=== PATIENT | female | born 1990 | race Caucasian/White ===

== ENCOUNTER 2016-10-11 09:46 | Emergency (ER) | payer OTHER ==
--- NOTE | 2016-10-11 12:37 | UC ---
Complaint Female HPI - HPI Summary HPI Summary: complaint of vaginal bleeding - had protected intercourse with new partner and condom broke started vaginal bleeding on 10/08/16 after taking Plan B on 10/06/16 heavy menstrual bleeding on 10/09- 10/10 feels fatigued cramping in LLQ yesterday that has resolved nauseated- vomited 2x yesterday denies diarrhea denies dysuria denies vaginal discharge denies any URI symptoms refuses any testing at this [facility] d/t insurance issues - History Of Current Complaint Chief Complaint: UCGU Stated Complaint: FEVER ABD PAIN PERSONAL Time Seen by Provider: 10/11/16 12:16 Hx Obtained From: Patient Hx Last Menstrual Period: 10/01/16 - Allergies/Home Medications Allergies/Adverse Reactions: Allergies Allergy/AdvReac Type Severity Reaction Status Date / Time No Known Allergies Allergy Verified 10/11/16 10:52 Home Medications: Home Medications NK [No Home Medications Reported] 10/11/16 [History Confirmed 10/11/16] PMH/Surg Hx/FS Hx/Imm Hx Previously Healthy: Yes - Surgical History Surgical History: None - Family History Known Family History: Positive: Hypertension Negative: Cardiac Disease, Diabetes - Social History Occupation: Employed Full-time Lives: Alone Alcohol Use: Rare Substance Use Type: None Smoking Status (MU): Never Smoked Tobacco Have You Smoked in the Last Year: No Review of Systems Constitutional: Chills, Fatigue Skin: Negative Eyes: Negative ENT: Negative Respiratory: Negative Cardiovascular: Negative Gastrointestinal: Abdominal Pain, Vomiting Genitourinary: Other - vaginal bleeding Motor: Negative Neurovascular: Negative Musculoskeletal: Negative Neurological: Negative Psychological: Negative All Other Systems Reviewed And Are Negative: Yes Physical Exam Triage Information Reviewed: Yes Appearance: No Pain Distress, Well-Nourished Vital Signs: Initial Vital Signs Temp 99 F 10/11/16 10:44 Pulse 85 10/11/16 10:44 Resp 14 10/11/16 10:44 BP 111/66 10/11/16 10:44 Pulse Ox 100 10/11/16 10:44 Vital Signs Reviewed: Yes Eyes: Positive: Conjunctiva Clear ENT: Positive: Normal ENT inspection Neck: Positive: No Lymphadenopathy Respiratory: Positive: Lungs clear, Normal breath sounds, No respiratory distress Cardiovascular: Positive: RRR, No Murmur, Pulses Normal Abdomen Description: Positive: Nontender, No Organomegaly, Soft. Negative: CVA Tenderness (R), CVA Tenderness (L), Distended, Guarding Bowel Sounds: Positive: Present Musculoskeletal: Positive: No Edema Neurological Exam: Normal Psychological Exam: Normal Skin Exam: Normal - External genitalia without erythema, exudate or discharge. Vaginal vault is without discharge. Cervix is of normal color without lesion. The os is closed. There is no bleeding noted. Uterus is noted to be of normal size and nontender. No cervical motion tenderness is seen. No masses are palpated. The adnexa are without masses or tenderness Complaint Female Dx - Course Course Of Treatment: exam completed. normal examination - abdomen nontender, No cervical motion tenderness,cervial discharge or bleeding noted. pt refuses STD testing and UA at this time. discussed adverse effects of taking Plan B. no emergent symptoms at this time. discussed when to seek emergent care if needed. - Differential Dx/Diagnosis Differential Diagnosis/HQI/PQRI: Cervicitis, Sexually Transmitted Disease, Other - adverse medication effects Provider Diagnoses: adverse medication reaction- Plan B Discharge - Discharge Plan Condition: Stable Disposition: HOME Patient Education Materials: Menstruation (ED) Referrals: No Primary Care Phys,NOPCP [Primary Care Provider] - [facility] [place] [facility] [Outside] Additional Instructions: Increase fluids and rest Take [id number] day with food to reduce your symptoms [facility] that your have refused at urgent care. Please review your discharge instructions. If your symptoms do not improve please call your primary care provider or return to urgent care.
== END 2016-10-11 13:20 | disposition home or self-care (01) ==
LOC: UCEAST 09:46
DX: N93.8 Other specified abnormal uterine and vaginal bleeding (principal); T38.4X5A Adverse effect of oral contraceptives, initial encounter
CPT/HCPCS: 99212; G0463

== ENCOUNTER 2017-06-27 21:30 | Emergency (ER) | payer OTHER ==
[2017-06-27] MEDS ORDERED: Naproxen TAB* 250 MG PO ONE (22:16)
--- NOTE | 2017-06-27 23:02 | ED ---
Cabrera Nixon Stephanie, scribed for Colin Marinelli MD on 06/27/17 at 2224 . Lower Extremity - HPI Summary HPI Summary: Pt is a 26 y/o F presenting to the ED with c/o right knee pain that began post ski accident at 1600 today. Pt reports attempting to walk after the accident and feeling unstable in her R knee. No prior injury. Foot, ankle feel normal. Able to walk fairly normally with assistance of jason wrap. - History of Current Complaint Chief Complaint: EDExtremityLower Stated Complaint: RT KNEE INJURY Time Seen by Provider: 06/27/17 22:00 Hx Obtained From: Patient, Family/Material Mixer - Boyfriend Hx Last Menstrual Period: 10/01/16 Mechanism Of Injury: Fall From A Standing Position Onset of Pain: Post Accident Onset/Duration: Still Present Pain Intensity: 0 Pain Scale Used: 0-10 Numeric Location: Is Discrete @ - R knee Associated Signs And Symptoms: Negative: Swelling Aggravating Factor(s): Ambulation Alleviating Factor(s): Rest - Allergies/Home Medications Allergies/Adverse Reactions: Allergies Allergy/AdvReac Type Severity Reaction Status Date / Time No Known Allergies Allergy Verified 10/11/16 10:52 PMH/Surg Hx/FS Hx/Imm Hx Opthamlomology History: Denies: Hx Legally Blind EENT History: Denies: Hx Deafness Infectious Disease History: No Infectious Disease History: Denies: History Other Infectious Disease, Traveled Outside the [place] in Last 30 Days - Family History Known Family History: Positive: Hypertension Negative: Cardiac Disease, Diabetes - Social History Alcohol Use: Rare Substance Use Type: Reports: None Smoking Status (MU): Never Smoked Tobacco Have You Smoked in the Last Year: No Review of Systems Negative: Fever Positive: Other - feeling unstable while ambulating All Other Systems Reviewed And Are Negative: Yes Physical Exam - Summary Physical Exam Summary: Appearance: Well appearing, no pain distress Skin: warm, dry, reflects adequate perfusion Head/face: normal Eyes: EOMI, JANET ENT: normal Neck: supple, non-tender Respiratory: CTA, breath sounds present Cardiovascular: RRR, pulses symmetrical Abdomen: non-tender, soft Bowel: present Musculoskeletal: Pt is able to walk she gets anterior/posterior movement and wobble. On exam, she has a lack of definitive endpoint with Lockman and anterior drawer test. There is slight medial effusion, no laxity of MCL or LCL, no crepitance. Negative Thomas test. Neuro: normal, sensory motor intact, A&Ox3 Triage Information Reviewed: Yes Vital Signs On Initial Exam: Initial Vitals Temp Pulse Resp BP Pulse Ox 98.6 F 68 18 108/67 99 06/27/17 21:37 06/27/17 21:37 06/27/17 21:37 06/27/17 21:37 06/27/17 21:37 Vital Signs Reviewed: Yes Diagnostics - Vital Signs Vital Signs Temp Pulse Resp BP Pulse Ox 06/27/17 21:37 98.6 F 68 18 108/67 99 - Laboratory Lab Statement: Any lab studies that have been ordered have been reviewed, and results considered in the medical decision making process. - Radiology XRay R knee Xray Interpretation: No Acute Changes - No fracture. Slight effusion. Radiology Interpretation Completed By: ED Physician Lower Extremity Course/Dx - Course Course Of Treatment: Min effusion on exam. Lack of def endpoint on Lockman and Ant Drawer. MCL/LCL feel intact. JASON here. Walks well. Suspect incomplete injury , likely of ACL. Xrays nl. Crutches. Refer to ortho. - Diagnoses Provider Diagnoses: ACL laxity, Right knee sprain Discharge - Discharge Plan Condition: Good Disposition: HOME Patient Education Materials: ACL Injury (ED) Referrals: No Primary Care Phys,NOPCP [Medical Doctor] - Jennifer Esquivel MD [Medical Doctor] - Additional Instructions: Range knee every hour. Ice. Jason for support. Hinged knee brace. Call ortho for appt on Friday. May return to work, but limit activity. The documentation as recorded by the Cabrera luis Stephanie accurately reflects the service I personally performed and the decisions made by , Colin Marinelli MD.
[2017-06-27 23:13] VITALS: BP 113/76
--- NOTE | 2017-06-28 09:15 | RAD ---
Indication: Right knee pain. 4 views of the right knee demonstrates no fracture. No other bone or joint abnormality is identified. IMPRESSION: No definite fracture of the right knee is noted. No joint effusion is noted.
== END 2017-06-27 23:12 | disposition home or self-care (01) ==
LOC: ED 21:30
DX: S83.91XA Sprain of unspecified site of right knee, initial encounter (principal); Y93.23 Activity, snow (alpine) (downhill) skiing, snowboarding, sledding, tobogganing and snow tubing; Y92.9 Unspecified place or not applicable; Y99.9 Unspecified external cause status
CPT/HCPCS: 99282; A9270-GY

== ENCOUNTER 2017-09-08 06:23 | Day surgery (SDC) | payer OTHER ==
--- NOTE | 2017-09-02 22:19 | HP ---
PREOPERATIVE HISTORY AND PHYSICAL: DATE OF ADMISSION/SURGERY: 09/08/17 [facility] DATE OF OFFICE VISIT: 09/02/17 ATTENDING SURGEON: Dr. Harini Day.* (DICTATED BY MARIANA DANIELS) PROCEDURE: Right knee arthroscopy, anterior cruciate ligament reconstruction using autograft. CHIEF COMPLAINT: Right knee pain and instability. HISTORY OF PRESENT ILLNESS: Janett is a 26-year-old female, who presents to the clinic for right knee pain and instability due to an ACL tear after an injury twisting the knee. She has failed conservative measures and has therefore, agreed to undergo a right knee arthroscopy, anterior cruciate ligament reconstruction using autograft with Dr. Day on 09/08/17. PAST MEDICAL HISTORY: Denies any current problems. PAST SURGICAL HISTORY: Denies prior surgeries. MEDICATIONS: Vitamin B12 one by mouth daily. ALLERGIES: No known drug allergies. FAMILY HISTORY: Positive for heart disease and CVA. Denies family history of DVT or PE. SOCIAL HISTORY: She lives with her spouse. She works as a real estate paralegal. She exercises regularly. She is right hand dominant. She reports occasional alcohol consumption. She denies smoking. REVIEW OF SYSTEMS: A 14-point review of systems was reviewed with the patient. Positive for current complaint, otherwise negative. Denies fever, chills, chest pain, shortness of breath, history of DVT or PE, or history of bleeding disorder. PHYSICAL EXAMINATION GENERAL: A 26-year-old well-developed, well-nourished female, in no acute distress. Alert and oriented x3. Appropriate mood and affect. VITAL SIGNS: Height 62, pulse 76, blood pressure 118/68, respiratory rate 16, temperature of 97.6. HEENT: Normocephalic, atraumatic. PERRLA. Throat clear. NECK: Supple. PULMONARY: Lungs are clear to auscultation bilaterally. No wheezing, rhonchi, or rales. CARDIO: Regular rate and rhythm. S1 and S2. No murmurs, gallops, rubs, or edema. ABDOMEN: Positive bowel sounds, soft, nontender. NEURO: Alert and oriented x3. Cranial nerves grossly intact. Sensation intact to light touch. MUSCULOSKELETAL: Right lower extremity, skin is intact. No warmth or erythema. No effusion. Range of motion is 0 to 130. Stable to varus and valgus stress. 2B Neelima. Negative posterior drawer. Nontender at the joint lines. Calf soft and nontender. +2 PT pulse. Sensation intact to light touch distally. DIAGNOSTIC STUDIES: MRI of the right knee reveals full-thickness rupture of the ACL. No obvious meniscus pathology. IMPRESSION: Right knee anterior cruciate ligament tear. PLAN: The patient is scheduled to undergo a right knee arthroscopy, anterior cruciate ligament reconstruction using autograft with Dr. Day on 09/08/17. The patient would like bone-patellar tendon-bone autograft. She will follow up with Dr. Day 10 days postop for followup and suture removal. Percocet was sent to the patient's pharmacy for postop pain management and Keflex for antibiotic prophylaxis. MARIANA DANIELS [id number]/[facility] #: [id number] MTDD
[~2017-09-08 06:23] MED LIST: Buffered Lidocaine 0.9% SYRIN* 5 ML/SYR SYRINGE INTRADERM ONE; Dexamethasone IV* 4 MG/ML 1 ML (4 MG) IV SLOW PU ONE; Famotidine IV* 10 MG/ML 2 ML (20 mg) IV ONE
[2017-09-08] MEDS ORDERED: ceFAZolin 2 GM in 100 MLS NS (*) BAG IVPB ONE (06:34)
[2017-09-08] MEDS ORDERED: Famotidine IV* 10 MG/ML 2 ML (20 mg) ONE (06:34)
[2017-09-08] MEDS ORDERED: Dexamethasone IV* 4 MG/ML 1 ML (4 MG) ONE (06:34)
[2017-09-08] MEDS ORDERED: Lidocaine 1% MPF wEPI 200,000* 30 ML SDV ONE (07:06)
[2017-09-08] MEDS ORDERED: Bupivacaine 0.25% SDV* 30 ML ONE (07:06)
[2017-09-08] MEDS ORDERED: Ondansetron INJ* 2 MG/ML VIAL ONE (07:20)
[2017-09-08] MEDS ORDERED: Propofol* 10 MG/ML 20 ML BTL IV PUSH ONE (07:20)
[2017-09-08] MEDS ORDERED: Lidocaine 2% PF * 5 ML VIAL ONE (07:20)
[2017-09-08] MEDS ORDERED: Ketorolac INJ* 30 MG/ML 1 ML VIAL ONE (07:20)
[2017-09-08] MEDS ORDERED: fentaNYL* 50 MCG/ML 5 ML VIAL (250 MCG VIAL) ONE (07:22)
[2017-09-08] MEDS ORDERED: Midazolam* 1 MG/ML 5 ML VIAL (5 MG) ONE (07:22)
[2017-09-08] MEDS ORDERED: Atracurium* 10 MG/ML 10 ML VIAL ONE (07:26)
[2017-09-08] MEDS ORDERED: oxyCODONE/Acetamin 5/325 MG* TAB PO PRN (08:03)
[2017-09-08] MEDS ORDERED: HYDROmorphone INJ* 1 MG/ML CARPUJECT SYRINGE IV PRN (08:03)
[2017-09-08] MEDS ORDERED: Ondansetron INJ* 2 MG/ML VIAL IV PRN (08:03)
[2017-09-08] MEDS ORDERED: Naloxone* 0.4 MG/ML 1 ML VIAL IV PRN (08:03)
[2017-09-08] MEDS ORDERED: fentaNYL* 50 MCG/ML 2 ML VIAL (100 MCG VIAL) IV PRN (08:03)
[2017-09-08] MEDS ORDERED: Scopolamine 1.5 mg* PATCH TRANSDERM PRN (08:03)
[2017-09-08] MEDS ORDERED: DiMENhydriNATE IV* 50 MG/ML VIAL IV PUSH PRN (08:03)
[2017-09-08] MEDS ORDERED: DiMENhydriNATE IV* 50 MG/ML VIAL ONE (10:06)
[2017-09-08 10:17] VITALS: BP 106/70
--- NOTE | 2017-09-09 06:35 | OP ---
CC: PCP, Winnie Iniguez MD * DATE OF OPERATION: 09/08/17 [facility] DATE OF : 86 SURGEON: Harini Day MD METAL SMELTER: MARIANA Arshad ANESTHESIOLOGIST: Dr. Frost. ANESTHESIA: General. PRE-OP DIAGNOSIS: Right knee grade 3 ACL rupture. POST-OP DIAGNOSIS: Right knee grade 3 ACL rupture as well as fraying of the medial and lateral meniscus. OPERATIVE PROCEDURE: Right knee arthroscopy with ACL reconstruction using BTB autograft and partial medial and partial lateral meniscectomy. IMPLANTS USED: Two Peter and Nephew SoftSilk 7 x 25 and then 9 x 25 mm screws. COMPLICATIONS: None. ESTIMATED BLOOD LOSS: Minimal. TOURNIQUET TIME: 19 minutes at 250 mmHg. INDICATIONS: Janett Raymundo is a 26-year-old female who was skiing when she sustained injury to her right knee. She was diagnosed with an ACL rupture. She did a short course of physical therapy and elected to proceed with surgical treatment. Risks and benefits of surgery were discussed at length, included but are not limited to bleeding, infection, damage to nerves, vessels, surrounding structures, wound nonhealing, persistent pain, need for further surgery, scarring, stiffness, incomplete release of symptoms, risk of anesthesia , as well as risk of rerupture, and risk of DVT. She has elected to proceed. DESCRIPTION OF PROCEDURE: The patient was greeted in the preoperative area by the attending surgeon. Correct extremity was marked and consent was confirmed. The patient was brought back to the operating suite where she was placed in a supine position on the operating room table. She underwent general anesthesia and LMA intubation after which she was appropriately positioned on the bed. Post this position, unsterile tourniquet was placed high on the proximal thigh and a damian bag at the end of the bed to allow for the knee to remain at 90 degrees. The right leg was then prepped and draped in the usual sterile fashion , beginning with Chlorhexidine soap scrub and alcohol wipe and a final prep with ChloraPrep. After appropriate surgical pause indicating site, side, procedure and administration of antibiotics, the knee was intra-articularly injected with 1% lidocaine with epi. A midline incision over the patellar tendon was then made with a 15 blade. Soft tissue was carefully dissected to expose the paratenon. Layers were preserved for later closure. The paratenon was then sized and protected for a later closure. The patellar tendon was identified. The width was about 35 mm. The center 10 mm were harvested using a fresh 10 blades. The bone block was then harvested both on the patella and the tibia. The patellar block was found to be about 23 mm in length and 9 mm in width and this was harvested using a sagittal saw. The distal bone block was about 10 x 30 mm. Once the bone block was harvested and the graft was fully harvested, it was prepared on the back table by the assistant media planner. The surgeon closed the patellar tendon with 0 Vicryl in an interrupted fashion. The tourniquet was deflated for a total time of 19 minutes. The attention was directed to arthroscopy. The lateral portal was made through the capsule. The scope was positioned in the joint. The patellofemoral joint had grade 0 changes. The medial and lateral gutters were intact without any obvious wear. There was a small amount of wear about the medial femoral condyle with grade 1 and 2 changes. The notch had evidence of a grade 3 tear of the ACL. There was a large stump anteriorly with some fibers that were still intact in continuity, but these were very thin fibers. Once this was done, the remainder of the diagnostic portion was completed. The scope was placed in the medial compartment. The medial meniscus was grossly intact. There was no unstable deep tears; however, there was fraying particularly near the root. The medial femoral condyle had grade 0 to 1 changes. The medial plateau had grade 0 changes. Shaver was used to debride back the unstable flaps posteriorly near the root. After this was done , the knee was placed in figure-of- four position. The lateral meniscus was examined. The root had some partial tearing. The body of the meniscus was still intact, but had some mild fraying. The shaver was used to debride back the mild fraying of the body as well as the root. The tibial plateau had grade 1 to 2 changes with fissuring particularly at the weightbearing surface. The lateral femoral condyle had grade 0 changes. Attention was directed back to the notch. The knee was placed in 90 degrees. The ACL stump was removed using biters and eduardo. Lateral wall was prepared using electrocautery device and skeletonized. A pilot fuel engineer hole was placed in the provisional femoral tunnel and checked by moving the scope from the lateral to the medial portal to assess her positioning. This was used as a reference point for the femoral tunnel. Once this was done, the tibial footprint was then positioned with a tip-to-tip guide , placed at 50 degrees. The guidewire was placed in the center of the footprint. This was confirmed arthroscopically. Once this was confirmed, a size 10 mm full bore reamer was used to drill the tunnel. Excess bone graft was saved for later bone grafting for the patella and tibial bony defects from the graft harvest. Once the tunnel was then carefully rasped and found to be in good position, the attention was directed to the femur. A care was placed to prevent fluid egress. The Peter and Nephew straight guide was then placed in the center of the femoral footprint. The knee was then hyperflexed and the Beath pin was then placed carefully in the center of the footprint through the lateral cortex and out through the IT band and skin. The scope was then changed position to make sure there was enough back wall and is in appropriate position. Once this was determined, this was then overdrilled with a size 9 mm low profile reamer to the anterior medial portal to a depth of about 25 mm. All excess bone and debris were removed. The tunnel was examined and found to have a good back wall and appropriately placed this. The tunnel was then carefully notched. All excess bone and debris were removed. The #2 Ethibond was placed to the pilot fuel engineer hole of the Beath pin and then advanced through the tunnel and then passed in an antegrade fashion to the tibial tunnel. At this point, the graft was brought from the back table and passed under direct and arthroscopic visualization to be well-seated in the femoral tunnel. With tension on the tibia and femoral stands, a size 7 x 25 mm SoftSilk screw was placed with excellent purchase. The knee was then taken to full extension and the tunnel was found to be appropriately placed and not impinged. The knee was then cycled approximately 15 times and there was no evidence of loosening or tearing of the graft. The scope was brought back into the joint and the graft was found to be in the same position. The knee was then taken to about 20 degrees of flexion with posterior drawer and tension on the tibial sutures. The tibial portion was secured with a 9 x 25 mm SoftSilk screw. The knee was then taken through range of motion. The Neelima was assessed and found to be stable. The scope was brought back to the joint, the graft was visualized and found to be intact. Final images were obtained. The wounds were copiously irrigated with sterile saline. The excess bone block at the tibial tunnel was then excised and then used for later bone graft into the patellar defect. The patellar and tibial defects were bone grafted, oversewn with 0 Vicryl. The paratenon was then closed in a running fashion using 2-0 Vicryl. The skin was closed in layers with 2-0 Vicryl and 3-0 Monocryl. Sterile dressings were applied. The incision as well as the knee were intra-articularly injected with 0.25% Marcaine plain. Sterile dressings were applied. A Cryo/Cuff and a hinged knee brace was applied for range of motion 0 to 120 degrees, but locked in extension. She was awoken from anesthesia and transferred to the PACU in stable condition. POSTOPERATIVE PLAN: She will be weightbearing as tolerated. She will be locked in an extension for her brace while walking for the first 4 weeks. She will be discharged on pain medication and antibiotics. DVT prophylaxis was considered, but deferred due to no previous personal or family history. I will see the patient back in about 6 to 8 days. [id number]/[facility] [place] #: [id number] YK
== END 2017-09-08 10:45 | disposition home or self-care (01) ==
LOC: OREAST 06:23
PROVIDERS: ATTEND Orthopaedic Surgery
DX: S83.511A Sprain of anterior cruciate ligament of right knee, initial encounter (principal); S83.221A Peripheral tear of medial meniscus, current injury, right knee, initial encounter; S83.261A Peripheral tear of lateral meniscus, current injury, right knee, initial encounter; Y93.23 Activity, snow (alpine) (downhill) skiing, snowboarding, sledding, tobogganing and snow tubing; Y92.39 Other specified sports and athletic area as the place of occurrence of the external cause
CPT/HCPCS: 81025; C1713; J1100; J1240; J1885; J2001; J2250; J2405; J2704; J3010

== ENCOUNTER 2017-10-02 21:30 | Emergency (ER) | payer OTHER ==
[2017-10-02 21:39] VITALS: BP 98/62
--- NOTE | 2017-10-02 21:46 | UC ---
Complaint Female HPI - HPI Summary HPI Summary: Patient is has had 2 days of pain with urination has an appointment with primary care doctor and Friday but tonight started urinating but got concerned no back pain denies fevers chills nausea vomiting states her last menstrual period was 4 days ago will check a urine - History Of Current Complaint Chief Complaint: UCGU Stated Complaint: BLOOD IN URINE Time Seen by Provider: 10/02/17 21:45 Hx Obtained From: Patient Hx Last Menstrual Period: 09/28/17 ?: No Onset/Duration: Sudden Onset, Lasting Days - 2, Worse Since - This evening Timing: Constant Severity Initially: Mild Severity Currently: Moderate Pain Intensity: 5 Pain Scale Used: 0-10 Numeric Character: Burning Aggravating Factor(s): Urination Alleviating Factor(s): Position Associated Signs And Symptoms: Positive: Negative - Allergies/Home Medications Allergies/Adverse Reactions: Allergies Allergy/AdvReac Type Severity Reaction Status Date / Time No Known Allergies Allergy Verified 10/02/17 21:39 PMH/Surg Hx/FS Hx/Imm Hx Previously Healthy: Yes - Surgical History Surgical History: Yes Surgery Procedure, Year, and Place: [place] teeth, RIGHT ACL REPAIR 09/08/17 - Family History Known Family History: Positive: Hypertension Negative: Cardiac Disease, Diabetes - Social History Occupation: Employed Full-time Lives: With Family Alcohol Use: Occasionally Substance Use Type: None Smoking Status (MU): Never Smoked Tobacco Have You Smoked in the Last Year: No Review of Systems Constitutional: Negative Skin: Negative Eyes: Negative ENT: Negative Respiratory: Negative Cardiovascular: Negative Gastrointestinal: Negative Genitourinary: Dysuria, Hematuria, Frequency, Urgency Motor: Negative Neurovascular: Negative Musculoskeletal: Negative Neurological: Negative Psychological: Negative Is Patient Immunocompromised?: No All Other Systems Reviewed And Are Negative: Yes Physical Exam Triage Information Reviewed: Yes Appearance: Well-Appearing, No Pain Distress, Well-Nourished Vital Signs: Initial Vital Signs Temp 98.7 F 10/02/17 21:35 Pulse 90 10/02/17 21:35 Resp 16 10/02/17 21:35 BP 98/62 10/02/17 21:35 Pulse Ox 100 10/02/17 21:35 Vital Signs Reviewed: Yes Eye Exam: Normal Eyes: Positive: Conjunctiva Clear ENT Exam: Normal ENT: Positive: Normal ENT inspection, Hearing grossly normal. Negative: Nasal congestion, Trismus, Muffled voice, Hoarse voice Dental Exam: Normal Neck exam: Normal Neck: Positive: Supple, Nontender Respiratory Exam: Normal Respiratory: Positive: Chest non-tender, Lungs clear, Normal breath sounds, No respiratory distress, No accessory muscle use Cardiovascular Exam: Normal Cardiovascular: Positive: RRR, No Murmur, Pulses Normal, Brisk Capillary Refill Abdominal Exam: Normal Abdomen Description: Positive: Nontender, No Organomegaly, Soft. Negative: CVA Tenderness (R), CVA Tenderness (L), Distended, Guarding, McBurney's Point Tenderness Bowel Sounds: Positive: Present Musculoskeletal Exam: Normal Musculoskeletal: Positive: Strength Intact, ROM Intact, No Edema Neurological Exam: Normal Neurological: Positive: Alert, Muscle Tone Normal Psychological Exam: Normal Skin Exam: Normal Diagnostics - Laboratory Diagnostic Studies Completed/Ordered: UA +3 blood +3 leukoesterase negative for nitrates Complaint Female Dx - Course Course Of Treatment: Increase fluids Pyridium and Macrobid follow with primary care doctor to emergency department for pain in her back fever chills vomiting - Differential Dx/Diagnosis Provider Diagnoses: Urinary tract infection Discharge - Sign-Out/Discharge Documenting (check all that apply): Discharge - Discharge Plan Condition: Stable Disposition: HOME Prescriptions: Nitrofurantoin Macrocrystals* [Macrodantin*] 100 mg PO BID 10 Days #19 cap Phenazopyridine TAB* [Pyridium 100 mg TAB*] 100 mg PO TID PRN #9 tab PRN Reason: urinary pain and burning Patient Education Materials: Urinary Tract Infection in Women (ED) Referrals: Winnie Iniguez MD [Primary Care Provider] - If Needed - Billing Disposition and Condition Condition: STABLE Disposition: HOME
[2017-10-02] MEDS ORDERED: Phenazopyridine TAB* 100 MG PO ONE (21:57)
[2017-10-02] MEDS ORDERED: Nitrofurantoin Macrocrystals* 50 MG CAP PO ONE (21:58)
== END 2017-10-02 22:13 | disposition home or self-care (01) ==
LOC: UCEAST 21:30
DX: N39.0 Urinary tract infection, site not specified (principal); B96.20 Unspecified Escherichia coli [E. coli] as the cause of diseases classified elsewhere; R31.9 Hematuria, unspecified; Z32.02 Encounter for pregnancy test, result negative
CPT/HCPCS: 81003; 84702; 87077; 87086; 87186; 99212; A9270-GY; G0463

== ENCOUNTER 2017-12-10 21:37 | Emergency (ER) | payer OTHER ==
[2017-12-10 21:53] VITALS: BP 103/67
[2017-12-10] MEDS ORDERED: Tetan/Diph/Pertus SYR(Tdap)* 0.5 ML SYR(BOOSTRIX) use SYR IM ONE (22:38)
--- NOTE | 2017-12-10 22:51 | UC ---
Skin Complaint HPI - HPI Summary HPI Summary: Patient sustained a burn to her left index finger today while cooking with oil. Skin is white and blistery and very painful. Unknown date of last tetanus. - History of Current Complaint Chief Complaint: UCBurn Time Seen by Provider: 12/10/17 22:10 Stated Complaint: BURN ON FINGER Hx Obtained From: Patient Hx Last Menstrual Period: 09/28/17 Onset/Duration: Sudden Onset, Lasting Hours, Still Present Timing: Constant Onset Severity: Severe Current Severity: Severe Pain Intensity: 10 Pain Scale Used: 0-10 Numeric Location: Hand (Left) - Left index finger Character: Pain Aggravating Factor(s): Touch Alleviating Factor(s): Nothing - Allergy/Home Medications Allergies/Adverse Reactions: Allergies Allergy/AdvReac Type Severity Reaction Status Date / Time No Known Allergies Allergy Verified 12/10/17 21:53 Home Medications: Home Medications NK [No Home Medications Reported] 12/10/17 [History Confirmed 12/10/17] Review of Systems Constitutional: Negative Skin: Other - BURN Respiratory: Negative Cardiovascular: Negative Gastrointestinal: Negative Musculoskeletal: Negative All Other Systems Reviewed And Are Negative: Yes PMH/Surg Hx/FS Hx/Imm Hx Previously Healthy: Yes - Surgical History Surgical History: Yes Surgery Procedure, Year, and Place: [place] teeth, RIGHT ACL REPAIR 09/08/17 - Family History Known Family History: Positive: Hypertension Negative: Cardiac Disease, Diabetes - Social History Alcohol Use: Occasionally Substance Use Type: None Smoking Status (MU): Never Smoked Tobacco Have You Smoked in the Last Year: No Physical Exam Triage Information Reviewed: Yes Appearance: Well-Appearing, No Pain Distress, Well-Nourished Vital Signs: Initial Vital Signs Temp 98.2 F 12/10/17 21:47 Pulse 86 12/10/17 21:47 Resp 20 12/10/17 21:47 BP 103/67 12/10/17 21:47 Pulse Ox 100 12/10/17 21:47 Vital Signs Reviewed: Yes Eyes: Positive: Conjunctiva Clear ENT: Positive: Hearing grossly normal Neck: Positive: Supple Respiratory: Positive: No respiratory distress, No accessory muscle use Cardiovascular: Positive: Pulses Normal Abdomen Description: Positive: Soft Musculoskeletal: Positive: ROM Intact, No Edema Neurological: Positive: Alert Psychological: Positive: Age Appropriate Behavior Skin: Positive: Other - PARTIAL THICKNESS BURN LEFT INDEX FINGER DORSAL SURFACE OVERLYING DISTAL AND MIDDLE PHALANGES Course/Dx - Diagnoses Provider Diagnoses: PARTIAL THICKNESS BURN LEFT INDEX FINGER Discharge - Sign-Out/Discharge Documenting (check all that apply): Discharge/Admit/Transfer - Discharge Plan Condition: Stable Disposition: HOME Patient Education Materials: Second Degree Burn (ED) Referrals: Winnie Iniguez MD [Primary Care Provider] - If Needed Additional Instructions: KEEP THE AREA COOL AND CLEAN. KEEP COVERED WITH ANTIBIOTIC OINTMENT. IBUPROFEN NEEDED FOR DISCOMFORT. SEEK FOLLOW-UP IF YOU DEVELOP SPREADING REDNESS OF THE SKIN, PURULENT DRAINAGE, FEVER, INCREASED PAIN OR ANY OTHER CONCERNING SYMPTOMS. TETANUS IMMUNIZATION GIVEN (TDAP): You have been given an immunization against tetanus. Please record this in your records. In general, a booster is needed only once every 10 years. The tetanus shot protects against tetanus or "lockjaw," which is a complication of certain wound infections (the tetanus shot cannot protect against the actual infection). The immunization site may become warm and red due to local reaction. If this occurs, apply warm compresses and take aspirin or ibuprofen to reduce inflammation and discomfort. Return for evaluation if the reaction becomes severe. - Billing Disposition and Condition Condition: STABLE Disposition: Home
== END 2017-12-10 22:50 | disposition home or self-care (01) ==
LOC: UCEAST 21:37
DX: T23.222A Burn of second degree of single left finger (nail) except thumb, initial encounter (principal); X10.2XXA Contact with fats and cooking oils, initial encounter; Y93.G3 Activity, cooking and baking; Y92.9 Unspecified place or not applicable; Z23 Encounter for immunization; Z82.49 Family history of ischemic heart disease and other diseases of the circulatory system
CPT/HCPCS: 90715; 99212; G0463

== ENCOUNTER 2019-09-11 13:23 | Emergency (ER) | payer OTHER ==
[2019-09-11 13:32] VITALS: BP 110/73
--- NOTE | 2019-09-11 14:55 | UC ---
Abdominal Pain Female HPI - HPI Summary HPI Summary: 5 DAYS OF INTERMITTENT SHARP RIGHT LOWER QUADRANT ABDOMINAL PAIN GETTING WORSE OVER THE PAST FEW DAYS. HAS BEEN CONSTANT FOR THE LAST 3 HOURS. SHE HAS SOME MILD NAUSEA AND DECREASED APPETITE. NO DOCUMENTED FEVER BUT HAD SOME MILD CHILLS. NO URINARY SYMPTOMS. NO BACK PAIN. - History of Current Complaint Chief Complaint: UCAbdominalPain Stated Complaint: ABDOMINAL PAIN Time Seen by Provider: 09/11/19 14:42 Hx Obtained From: Patient Hx Last Menstrual Period: on week ago Onset/Duration: Gradual Onset, Lasting Days, Still Present Timing: Constant Severity Initially: Moderate Severity Currently: Moderate Pain Intensity: 6 Pain Scale Used: 0-10 Numeric Location: Discrete At: RLQ Radiates: No Character: Sharp Aggravating Factor(s): Nothing Alleviating Factor(s): Nothing Associated Signs and Symptoms: Positive: Decreased Appetite, Nausea. Negative: Chest Pain, Dizzy, Back Pain, Constipation, Blood in Stool, Urinary Symptoms, Vomiting, Diarrhea Allergies/Adverse Reactions: Allergies Allergy/AdvReac Type Severity Reaction Status Date / Time No Known Allergies Allergy Verified 09/11/19 13:32 Home Medications: Home Medications NK [No Home Medications Reported] 12/10/17 [History Confirmed 09/11/19] PMH/Surg Hx/FS Hx/Imm Hx Previously Healthy: Yes - Surgical History Surgical History: Yes Surgery Procedure, Year, and Place: [place] teeth, RIGHT ACL REPAIR 09/08/17 - Family History Known Family History: Positive: Hypertension Negative: Cardiac Disease, Diabetes - Social History Alcohol Use: Occasionally Substance Use Type: None Smoking Status (MU): Never Smoked Tobacco Have You Smoked in the Last Year: No Review of Systems All Other Systems Reviewed And Are Negative: Yes Constitutional: Positive: Chills Respiratory: Positive: Negative Cardiovascular: Positive: Negative Gastrointestinal: Positive: Abdominal Pain, Nausea Genitourinary: Positive: Negative Physical Exam Triage Information Reviewed: Yes Appearance: Well-Appearing, No Pain Distress, Well-Nourished Vital Signs: Initial Vital Signs Temp 98.8 F 09/11/19 13:30 Pulse 66 09/11/19 13:30 Resp 12 09/11/19 13:30 BP 110/73 09/11/19 13:30 Pulse Ox 99 09/11/19 13:30 Laboratory Tests 09/11/19 09/11/19 13:57 13:59 POC Urine Color Yellow POC Urine Clarity Clear POC Urine pH 6.5 POC Ur Specif [place] 1.020 POC Urine Protein Negative POC Ur Glucose (UA) Negative POC Urine Ketones Negative POC Urine Blood Trace-intact A POC Urine Nitrite Negative POC Urine Bilirubin Negative POC Urine Urobilinogen 0.2 POC U Leukocyte Esteras Negative POC Ur Test Negative Vital Signs Reviewed: Yes Eyes: Positive: Conjunctiva Clear ENT: Positive: Hearing grossly normal Neck: Positive: Supple Respiratory Exam: Normal Cardiovascular Exam: Normal Abdomen Description: Positive: Soft, Other: - RLQ TENDERNESS TO PALPATION AND TO PERCUSSION. NO REBOUND OR RIGIDITY. POSITIVE OBTURATOR SIGN. NEG PSOAS SIGN. Negative: Distended, Guarding Bowel Sounds: Positive: Present Musculoskeletal: Positive: No Edema Neurological: Positive: Alert Psychological: Positive: Age Appropriate Behavior Skin: Negative: Rashes Abd Pain Female Course/Dx - Course Course Of Treatment: CONCERN FOR APPENDICITIS. TO [facility] [place] [place] PRIVATE CAR. PT OFFERED TRANSPORT TO THE ER BY AMBULANCE BUT DECLINES. ADVISED THAT BY NOT TRAVELING IN A MONITORED SETTING SHE COULD BE RISKING WORSENING OF HER CONDITION THAT COULD POSE A THREAT TO HER LIFE, HEALTH AND MEDICAL SAFETY. SHE VERBALIZES UNDERSTANDING AND CONTINUES TO DECLINE AMBULANCE TRANSFER. - Differential Dx/Diagnosis Provider Diagnosis: RLQ abdominal pain Discharge ED - Sign-Out/Discharge Documenting (check all that apply): Patient Departure All imaging exams completed and their final reports reviewed: No Studies - Discharge Plan Condition: Stable Disposition: TRANS [facility] Patient Education Materials: Abdominal Pain (ED) Referrals: Winnie Iniguez MD [Primary Care Provider] - If Needed Additional Instructions: I AM CONCERNED ABOUT YOUR APPENDIX. GO DIRECTLY TO THE [facility] FROM HERE FOR FURTHER EVALUATION. YOU HAVE DECLINED TRANSFER TO THE ER BY AMBULANCE. BE ADVISED THAT BY NOT TRAVELING IN A MONITORED SETTING YOU COULD BE RISKING WORSENING OF YOUR CONDITION THAT COULD POSE A THREAT TO YOUR LIFE, HEALTH AND MEDICAL SAFETY. - Billing Disposition and Condition Condition: STABLE Disposition: Trans Higher Lvl of Care Fac
== END 2019-09-11 15:05 | disposition short-term general hospital (02) ==
LOC: UCEAST 13:23
DX: R10.31 Right lower quadrant pain (principal); R68.83 Chills (without fever); R11.0 Nausea
CPT/HCPCS: 81003; 84702; 99212; G0463

== ENCOUNTER 2019-09-11 15:19 | Emergency (ER) | payer OTHER ==
[2019-09-11] MEDS ORDERED: Ketorolac INJ* 30 MG/ML 1 ML VIAL IV ONE (15:51)
[2019-09-11] MEDS ORDERED: NS 0.9% 1000 ML** 1,000 ML IV ONE (15:51)
[2019-09-11 15:57] LABS: ABS Basophils 0.1 10^3/ul (0-0.2); ABS Eosinophils 0.2 10^3/ul (0-0.6); ABS Lymphocytes 2.1 10^3/ul (1.0-4.8); ABS Monocytes 0.5 10^3/ul (0-0.8); ABS Neutrophils 3.1 10^3/ul (1.5-7.7); Eosinophil % 2.8 %; Hematocrit 38 % (35-47); Hemoglobin 13.3 g/dL (12.0-16.0); Lymphocyte % 35.7 %; Mean Corpuscular HGB Conc 36 g/dL (31-36); Mean Corpuscular Hemoglobin 33 pg (27-31); Mean Corpuscular Volume 92 fL (80-97); Mean Platelet Volume 8.2 fL (7.4-10.4); Platelet Count 262 10^3/uL (150-450); Red Blood Count 4.07 10^6 /uL (3.70-4.87); Red Cell Distribution Width 12 % (10-15); White Blood Count 5.9 10^3/uL (3.5-10.8)
[2019-09-11] MEDS ORDERED: Ondansetron INJ* 2 MG/ML VIAL IV ONE (16:05)
[2019-09-11 16:14] LABS: ALT 13 U/L (7-52); AST 20 U/L (13-39); Albumin 4.3 g/dL (3.2-5.2); Albumin/Globulin Ratio 1.8 (1-3); Alkaline Phosphatase 43 U/L (34-104); Anion Gap 8 mmol/L (2-11); BUN/Creatinine Ratio 11.8 (8-20); Blood Urea Nitrogen 8 mg/dL (6-24); C Reactive Protein 22.32 mg/L (<8.01); CO2 Carbon Dioxide 26 mmol/L (22-32); Calcium 9.4 mg/dL (8.6-10.3); Chloride 104 mmol/L (101-111); EGFR African American 122.1 (>60); EGFR Non-African American 100.9 (>60); Globulin 2.4 g/dL (2-4); Glucose 87 mg/dL (70-100); Magnesium 1.9 mg/dL (1.9-2.7); Potassium 3.6 mmol/L (3.5-5.0); Sodium 138 mmol/L (135-145); Total Protein 6.7 g/dL (6.4-8.9)
[2019-09-11 16:20] LABS: HCG Pregnancy < 0.60 mIU/mL
[2019-09-11 16:28] LABS: Urine Appearance Clear; Urine Bilirubin Negative (Negative); Urine Blood 1+ (Negative); Urine Color Straw; Urine Glucose Negative (Negative); Urine Ketones Negative (Negative); Urine Nitrite Negative (Negative); Urine Protein Negative (Negative); Urine Specific Gravity 1.006 (1.010-1.030); Urine Urobilinogen Negative (Negative)
[2019-09-11 16:29] LABS: Urine Bacteria 1+ (Absent); Urine Red Blood Cell Trace(0-2/hpf) (Absent); Urine Squamous Epithelial Cell Present (Absent); Urine White Blood Cell Absent (Absent)
--- NOTE | 2019-09-11 18:00 | ED ---
Progress - Progress Note Progress Note: patient was signed out to me by MARIANA Wright at [address] abdomen and pelvis for possible appendicitis. CT scan returned showing no significant pathology with no evidence of appendicitis. Patient does not appear to be suffering any significant medical pathology requiring intervention at this time. Patient's vitals stable. Patient discharged to outpatient follow -up. Course/Dx - Diagnoses Provider Diagnoses: RLQ abdominal pain Discharge ED - Sign-Out/Discharge Documenting (check all that apply): Patient Departure - Discharge Plan Condition: Fair Disposition: HOME Patient Education Materials: Abdominal Pain (ED) Referrals: Winnie Iniguez MD [Primary Care Provider] - 3 Days Additional Instructions: You were seen in the emergency department today for abdominal pain. Laboratory studies are done as well as CT imaging which found no evidence of acute pathology requiring intervention at this time. I'm uncertain what is causing your abdominal pain however it does not appear to be an emergency. Please follow-up with your primary care provider in 3-5 days for further evaluation and management of her symptoms. Please return to this emergency Department immediately if you develop any new or worsening symptoms. - Billing Disposition and Condition Condition: FAIR Disposition: Home
--- NOTE | 2019-09-11 18:41 | ED ---
Abdominal Pain/Female - HPI Summary HPI Summary: This patient is a 29yo F presenting to the ED from urgent care with concern for appendicitis. Patient has been endorsing RLQ pain since Friday this week. Also endorsing some mild nausea intermittently, however none currently. No fevers or sweats but having intermittent chills. Denies any constipation, diarrhea, vaginal discharge or back pain. Endorses some urinary frequency, but no hematuria, suprapubic tenderness or burning or urgency. No hx of bladder stones or UTI. She does have a hx of ovarian cysts. Not currently on menses and no chance of . Patient was seen at and sent here. Patient states about 1 week ago (Friday afternoon) she began to have mid abd pain which did not radiate. A day later, she noticed pain more into the RLQ area, again without radiation. Since Friday, she has only had the RLQ pain without associated pain otherwise. No other sxs. Nothing makes the pain better or worse. States at times it is 9/10 pain and other moments a 3/10. No vaginal bleeding. Continues to eat and drink OK. - History of Current Complaint Chief Complaint: EDAbdPain Stated Complaint: ABD PAIN SENT FOR CC Time Seen by Provider: 09/11/19 15:27 Hx Obtained From: Patient Hx Last Menstrual Period: on week ago ?: No Onset/Duration: Gradual Onset Timing: Constant Severity Initially: Mild Severity Currently: Mild Pain Intensity: 6 Pain Scale Used: 0-10 Numeric Location: Discrete At: RLQ Radiates: No Character: Cramping Aggravating Factor(s): Nothing Alleviating Factor(s): Position Associated Signs and Symptoms: Positive: Nausea - Risk Factors Ectopic Risk Factor: Negative Ovarian Torsion Risk Factor: Ovarian Cysts/Tumors Allergies/Adverse Reactions: Allergies Allergy/AdvReac Type Severity Reaction Status Date / Time No Known Allergies Allergy Verified 09/11/19 15:25 Home Medications: Home Medications NK [No Home Medications Reported] 12/10/17 [History Confirmed 09/11/19] PMH/Surg Hx/FS Hx/Imm Hx Previously Healthy: Yes Endocrine/Hematology History: Denies: Hx Diabetes Cardiovascular History: Denies: Hx Hypertension, Hx Pacemaker/ICD, Other Cardiovascular Problems/ Disorders Respiratory History: Denies: Other Respiratory Problems/Disorders GI History: Denies: Other GI Disorders History: Reports: Other Problems/Disorders - Being treated for UTI Musculoskeletal History: Reports: Other Musculoskeletal History - Right Knee torn ACL/Meniscus Sensory History: Reports: Hx Contacts or Glasses - Glasses and contacts, instructed to bring glasses day of surgery Denies: Hx Legally Blind, Hx Deafness, Hx Hearing Aid Opthamlomology History: Reports: Hx Contacts or Glasses - Glasses and contacts, instructed to bring glasses day of surgery Denies: Hx Legally Blind Neurological History: Reports: Hx Migraine - not in 2 years Denies: Other Neuro Impairments/Disorders Psychiatric History: Denies: Hx Panic Disorder - Surgical History Surgery Procedure, Year, and Place: [place] teeth, RIGHT ACL REPAIR 09/08/17 Hx Anesthesia Reactions: No - Immunization History Hx Pertussis Vaccination: No Immunizations Up to Date: Yes Infectious Disease History: No Infectious Disease History: Denies: History Other Infectious Disease, Traveled Outside the [place] in Last 30 Days - Family History Known Family History: Positive: Hypertension Negative: Cardiac Disease, Diabetes - Social History Occupation: Employed Full-time Alcohol Use: Occasionally Hx Substance Use: No Substance Use Type: Reports: None Smoking Status (MU): Never Smoked Tobacco Have You Smoked in the Last Year: No Review of Systems Negative: Fever, Chills, Fatigue, Skin Diaphoresis Negative: Palpitations, Chest Pain Positive: Abdominal Pain - RLQ, Nausea Positive: frequency. Negative: burning, flank pain, hematuria, incontinence Negative: Headache All Other Systems Reviewed And Are Negative: Yes Physical Exam Triage Information Reviewed: Yes Vital Signs On Initial Exam: Initial Vitals Temp Pulse Resp BP Pulse Ox 98.8 F 69 16 132/74 97 09/11/19 15:22 09/11/19 15:22 09/11/19 15:22 09/11/19 15:22 09/11/19 15:22 Vital Signs Reviewed: Yes Appearance: Positive: Well-Appearing, Well-Nourished Skin: Positive: Warm, Skin Color Reflects Adequate Perfusion Neck: Positive: Supple, No Lymphadenopathy Respiratory/Lung Sounds: Positive: Clear to Auscultation, Decreased Breath Sounds Cardiovascular: Negative: Leg Edema Left, Leg Edema Right Abdomen Description: Positive: Other: - tenderness over [place] point Musculoskeletal: Positive: Strength/ROM Intact Neurological: Positive: Sensory/Motor Intact, Alert, Oriented to Person Place, Time, Speech Normal Psychiatric: Positive: Affect/Mood Appropriate Procedures - Sedation Patient Received Moderate/Deep Sedation with Procedure: No Diagnostics - Vital Signs Vital Signs Temp Pulse Resp BP Pulse Ox 09/11/19 17:23 59 114/75 100 09/11/19 17:00 59 100 09/11/19 16:53 56 114/74 100 09/11/19 16:23 59 104/70 99 09/11/19 16:00 72 100 09/11/19 15:53 67 113/73 100 09/11/19 15:52 66 100 09/11/19 15:22 98.8 F 69 16 132/74 97 - Laboratory Lab Results: Lab Results 09/11/19 09/11/19 09/11/19 Range/Units 15:50 15:50 16:09 WBC 5.9 (3.5-10.8) 10^3/uL RBC 4.07 (3.70-4.87) 10^6 /uL Hgb 13.3 (12.0-16.0) g/dL Hct 38 (35-47) % MCV 92 (80-97) fL MCH 33 H (27-31) pg MCHC 36 (31-36) g/dL RDW 12 (10-15) % Plt Count 262 (150-450) 10^3/uL MPV 8.2 (7.4-10.4) fL Neut % (Auto) 51.7 % Lymph % (Auto) 35.7 % [place] % (Auto) 8.9 % Eos % (Auto) 2.8 % Baso % (Auto) 0.9 % Absolute Neuts (auto) 3.1 (1.5-7.7) 10^3/ul Absolute Lymphs (auto) 2.1 (1.0-4.8) 10^3/ul Absolute Monos (auto) 0.5 (0-0.8) 10^3/ul Absolute Eos (auto) 0.2 (0-0.6) 10^3/ul Absolute Basos (auto) 0.1 (0-0.2) 10^3/ul Absolute Nucleated RBC 0.0 10^3/ul Nucleated RBC % 0.0 Sodium 138 (135-145) mmol/L Potassium 3.6 (3.5-5.0) mmol/L Chloride 104 (101-111) mmol/L Carbon Dioxide 26 (22-32) mmol/L Anion Gap 8 (2-11) mmol/L BUN 8 (6-24) mg/dL Creatinine 0.68 (0.51-0.95) mg/dL Est GFR ( Amer) 122.1 (>60) Est GFR (Non-Af Amer) 100.9 (>60) BUN/Creatinine Ratio 11.8 (8-20) Glucose 87 (70-100) mg/dL Calcium 9.4 (8.6-10.3) mg/dL Magnesium 1.9 (1.9-2.7) mg/dL Total Bilirubin 0.50 (0.2-1.0) mg/dL AST 20 (13-39) U/L ALT 13 (7-52) U/L Alkaline Phosphatase 43 (34-104) U/L C-Reactive Protein 22.32 H (<8.01) mg/L Total Protein 6.7 (6.4-8.9) g/dL Albumin 4.3 (3.2-5.2) g/dL Globulin 2.4 (2-4) g/dL Albumin/Globulin Ratio 1.8 (1-3) Lipase 18 (11.0-82.0) U/L Beta HCG, Quant < 0.60 mIU/mL Urine Color Straw Urine Appearance Clear Urine pH 5.0 (5-9) Ur Specific [place] 1.006 L (1.010-1.030) Urine Protein Negative (Negative) Urine Ketones Negative (Negative) Urine Blood 1+ A (Negative) Urine Nitrate Negative (Negative) Urine Bilirubin Negative (Negative) Urine Urobilinogen Negative (Negative) Ur Leukocyte Esterase Negative (Negative) Urine WBC (Auto) Absent (Absent) Urine RBC (Auto) Trace(0-2/hpf) (Absent) Ur Squamous Epith Cells Present A (Absent) Urine Bacteria 1+ A (Absent) Urine Glucose Negative (Negative) Result Diagrams: 09/11/19 15:50 09/11/19 15:50 Lab Statement: Any lab studies that have been ordered have been reviewed, and results considered in the medical decision making process. Abdominal Pain Fem Course/Dx - Course Course Of Treatment: Patient is evaluated for possible appendicitis. Afebrile on arrival. Patient appears well. Nondiaphoretic, non toxic. No Cervical LAD. Lungs CTA, RRR. Abdominal tenderness to the RLQ without radiation. + rovsings. No CVA tenderness bilaterally. No nausea at this time, however after labs drawn, stated she became slightly nauseous d/t blood draw. Given zofran. Given IV fluids. CT abd /pelvis ordered and pending with IV and oral contrast. Labs obtained which show normal WBC. Slightly elevated CRP at 22. UA negative. negative. Patient is signed out to MARIANA Walker pending further eval and CT results. Handoff at bedside. Pt currently stable and denies pain or nausea at rest. - Diagnoses Differential Diagnosis: Positive: Other - appendicitis, ovarian cyst, muscle strain, RLQ pain, hernia, PID, UTI Provider Diagnoses: RLQ abdominal pain Discharge ED - Sign-Out/Discharge Documenting (check all that apply): Sign-Out Patient Signing out patient TO: Satinder Banks - Discharge Plan Condition: Fair Referrals: Winnie Iniguez MD [Primary Care Provider] - - Billing Disposition and Condition Condition: FAIR
[2019-09-11] MEDS ORDERED: Iohexol 300* (CONTRAST) 10 ML SDV IV ONE (18:54)
[2019-09-11 21:03] VITALS: BP 117/68
== END 2019-09-11 21:03 | disposition home or self-care (01) ==
LOC: ED 15:19
DX: R10.31 Right lower quadrant pain (principal); R11.0 Nausea; R35.0 Frequency of micturition; Z32.02 Encounter for pregnancy test, result negative
CPT/HCPCS: 36415; 74177; 80053; 81003; 81015; 83690; 83735; 84702; 85025; 86140; 87086; 96361; 96374; 96375; 99283; J1885; J2405; Q9967

== ENCOUNTER 2023-12-20 07:06 | Inpatient (IN) ==
[2023-12-20] MEDS ORDERED: Lidocaine 1% VIAL 10 MG/ML 30 ML VIAL INJ PRN (08:12)
[2023-12-20] MEDS: Lactated Ringers 1000 ml BAG 1,000 ML IV SCH (08:51)
[2023-12-20] MEDS: Penicillin G Potassium IV 5,000,000 UNITS in NS 0.9% 100 ml BAG 100 ML IVPB ONE (08:56)
[2023-12-20 09:08] LABS: Hematocrit 37.2 % (35-45); Hemoglobin 12.7 g/dL (11.5-14.3); Mean Corpuscular Hemoglobin 30.5 pg (27-33); Mean Corpuscular Volume 89.6 fL (80-97); Mean Platelet Volume 9.4 fL (7.5-11.2); Platelet Count 163 10^3/uL (150-450); Red Blood Count 4.15 10^6/uL (3.63-4.92); Red Cell Distribution Width 18.2 % (12-17); White Blood Count 7.5 10^3/uL (3.8-11.8)
[2023-12-20 09:30] LABS: Urine Benzodiazepine Screen None Detected (None Detect); Urine Cannabinoids Screen None Detected (None Detect); Urine Opiates Screen None Detected (None Detect)
[2023-12-20] MEDS ORDERED: miSOPROStol 100 mcg TAB PO ONE (09:42)
[2023-12-20 09:48] LABS: ABS Eosinophils 0.1 10^3/uL (0.0-0.5); ABS Lymphocytes 1.4 10^3/uL (1.0-4.8); ABS Monocytes 0.6 10^3/uL (0.0-0.9); ABS Neutrophils 5.5 10^3/uL (1.5-7.6); ABS Nucleated RBC 0.01 10^3/ul; Eosinophil % 1.6 %; Nucleated Red Blood Cells % 0.1 %/100WBC (0.0-0.8)
[2023-12-20] MEDS: miSOPROStol 100 mcg TAB ONE (10:08)
[2023-12-20] MEDS ORDERED: Ondansetron 4 mg VIAL 2 MG/ML 2 ml VIAL IV PRN (13:14)
[2023-12-20] MEDS ORDERED: Ondansetron ODT 4 mg TAB 4 MG TAB SL PRN (13:14)
[2023-12-20] MEDS ORDERED: Calcium Carb (TUMS) 500 mg CHEW TAB PO PRN (13:14)
[2023-12-20] MEDS ORDERED: fentaNYL 100 mcg/2 ml 50 MCG/ML VIAL IV SLOW PU PRN (13:14)
[2023-12-20] MEDS: Penicillin G Potassium IV 3,000,000 UNITS in NS 0.9% 100 ml BAG 100 ML IVPB SCH (13:44)
[2023-12-20] MEDS: fentaNYL 100 mcg/2 ml 50 MCG/ML VIAL IV SLOW PU PRN (17:25)
[2023-12-20] MEDS: OBEPIDURAL (200 ML) 200 ML EPIDURAL ONE (19:38)
[2023-12-20] MEDS: Lactated Ringers 1000 ml BAG 1,000 ML IV ONE (19:41)
[2023-12-20] MEDS ORDERED: Sodium Citrate/Citric Acid LIQ 15 ML UDC PO PRN (19:53)
[2023-12-20] MEDS ORDERED: Phenylephrine 40 mcg/mL 10mL (400mcg) SYRINGE IV PUSH PRN ×2 (19:53)
[2023-12-20] MEDS ORDERED: Lactated Ringers 1000 ml BAG 1,000 ML IV ONE (19:53)
[2023-12-20] MEDS ORDERED: Lactated Ringers 1000 ml BAG 1,000 ML IV SCH (20:00)
[2023-12-20] MEDS: Oxytocin in LR 20,000 MILLI.UNIT/1,000 ML BAG IV SCH (20:41)
[2023-12-20 20:43] LABS: Urine Appearance Clear; Urine Bilirubin Negative (Negative); Urine Blood Negative (Negative); Urine Color Light-Yellow; Urine Glucose Negative (Negative); Urine Ketones 2+ (Negative); Urine Nitrite Negative (Negative); Urine Protein Negative (Negative); Urine Specific Gravity 1.017 (1.002-1.030); Urine Urobilinogen Negative (Negative); Urine pH 6.5 (5.0-8.0)
[2023-12-21] MEDS ORDERED: Bupivacaine 0.25% w/EPI 10 ML SDV ONE (02:43)
[2023-12-21] MEDS: Ampicillin ADVAN 2 GM in NS 0.9% 100 ml BAG 100 ML IVPB SCH (04:00)
[2023-12-21] MEDS: Gentamicin ADULT 300 MG in NS 0.9% 100 ml BAG 100 ML IVPB SCH (04:50)
[2023-12-21] MEDS: OBEPIDURAL (200 ML) 200 ML EPIDURAL SCH (08:30)
[2023-12-21] MEDS ORDERED: Glycerin ADULT 2.4 gm SUPP PR PRN (10:18)
[2023-12-21] MEDS: Oxytocin in LR 20,000 MILLI.UNIT/1,000 ML BAG IV SCH (13:27)
[2023-12-21] MEDS: Buffered Lidocaine 1% SYRIN 1 ml INTRADERM ONE (14:53)
[2023-12-21] MEDS: Lidocaine 1% w EPI 1:200,000 SDV 30 ML VIAL ONE (14:53)
[2023-12-22 06:59] LABS: ABS Basophils 0.1 10^3/uL (0.0-0.1); ABS Eosinophils 0.1 10^3/uL (0.0-0.5); ABS Lymphocytes 2.1 10^3/uL (1.0-4.8); ABS Monocytes 0.9 10^3/uL (0.0-0.9); Hematocrit 33.8 % (35-45); Hemoglobin 11.6 g/dL (11.5-14.3); Lymphocyte % 15.1 %; Mean Corpuscular Hgb Conc 34.3 g/dL (31-36); Mean Corpuscular Volume 90.3 fL (80-97); Platelet Count 148 10^3/uL (150-450); Red Blood Count 3.75 10^6/uL (3.63-4.92); Red Cell Distribution Width 18.4 % (12-17); White Blood Count 14.3 10^3/uL (3.8-11.8)
[2023-12-22] MEDS: Witch Hazel PAD JAR TOPICAL PRN (08:44)
[2023-12-22] MEDS: Dibucaine 1% OINT 28.35 GM TUBE PR PRN (08:44)
[2023-12-23 09:18] VITALS: BP 120/76
== END 2023-12-23 13:33 | disposition home or self-care (01) | DRG 805 ==
LOC: MCHOBOUT 07:06 → MCHOB 08:13